=== PATIENT | male | born 1960 | race Caucasian/White ===

== ENCOUNTER 2019-12-07 12:27 | Emergency (ER) | payer OTHER ==
[2019-12-07 12:32] VITALS: BP 130/82; PULSE 87; TEMP 97.6; BMI 33.7
[2019-12-07] MEDS ORDERED: KETOROLAC TROMETHAMINE 60 MG/2 ML VIAL IM ONE (13:25)
--- NOTE | 2019-12-07 13:29 | PDOC ---
History of Present Illness - General Chief Complaint: Pain Stated Complaint: NECK PAIN/ DIOMEDES SHOULDER PAIN Time Seen by Provider: 12/07/19 12:44 History Source: Patient Exam Limitations: No Limitations - History of Present Illness Is this a multiple visit Asthma Patient?: Yes Associated Symptoms: denies: chest pain, fever/chills, loss of appetite, nausea/ vomiting, shortness of breath, weakness Past History - Travel Traveled outside of the country in the last 30 days: No Close contact w/someone who was outside of country & ill: No - Past Medical History Allergies/Adverse Reactions: Allergies Allergy/AdvReac Type Severity Reaction Status Date / Time No Known Allergies Allergy Verified 12/07/19 12:32 Home Medications: Ambulatory Orders Alprazolam [Alprazolam ER] 1 mg PO TID 12/07/19 Cyclobenzaprine HCl [Flexeril -] 10 mg PO TID #21 tablet 12/07/19 Cyclobenzaprine HCl [Flexeril -] 10 mg PO TID #21 tablet 12/07/19 Diclofenac Sodium 75 mg PO BID PRN 12/07/19 COPD: No Psychiatric Problems: Yes (ANXIETY) - Surgical History Cholecystectomy: Yes - Immunization History Immunization Up to Date: Yes - Psycho Social/Smoking Cessation Hx Smoking History: Never smoked Hx Alcohol Use: No Drug/Substance Use Hx: No Review of Systems - Review of Systems Constitutional: No: Chills, Fever Respiratory: No: Shortness of Breath Cardiac (ROS): No: Chest Pain, Lightheadedness, Palpitations Musculoskeletal: Yes: Back Pain, Neck Pain, Joint Stiffness. No: Joint Pain, Joint Swelling, Muscle Pain, Muscle Weakness Neurological: Yes: Tingling. No: Numbness, Paresthesia, Weakness, Unsteady Gait , Dizziness *Physical Exam - Vital Signs Last Vital Signs Temp Pulse Resp BP Pulse Ox 97.6 F 87 18 130/82 98 12/07/19 12:27 12/07/19 12:27 12/07/19 12:27 12/07/19 12:27 12/07/19 12:27 - Physical Exam General Appearance: Yes: Nourished Respiratory/Chest: positive: Lungs Clear, Normal Breath Sounds Cardiovascular: positive: Regular Rhythm, Regular Rate, S1, S2 Musculoskeletal: positive: Muscle Spasm (b/l trapezius region. FROM with pain in b/l shoulder) Integumentary: positive: Normal Color Neurologic: positive: low pressure firer II-XII NML intact, Fully Oriented, Alert, Normal Mood/ Affect, Normal Response, Motor Strength 03/30 Medical Decision Making - Medical Decision Making 12/07/19 13:27 59 years old male with history of anxiety, patient was seen in the emergency room 2 weeks ago with bilateral shoulder pain after initiating exercise. Patient was given meloxicam and Naprosyn for pain control he was also advised to follow-up orthopedic if pain persists. Patient reports she saw Dr. Ingrid Jasmine last week who is an orthopedic doctor at [facility] and he was recommended to follow-up pain management and physical therapy. He is here with worsening bilateral pain pain in the posterior neck that is keeping him up at night. He denies any trauma to the shoulders. He denies any weakness. He has 1 more muscle relaxant pill left. Patient is also taking diclofenac which was given by the orthopedic. He is also undergoing a lot of stress as he recently lost his 20-year-old daughter. With muscle spasm along upper trapezius region Will give a prescription for muscle relaxant patient patient was advised to follow-up pain management and physical therapy 12/07/19 15:23 Discharge - Discharge Information Problems reviewed: Yes Clinical Impression/Diagnosis: Muscle spasm Condition: Stable Disposition: HOME - Admission No - Additional Discharge Information Prescriptions: Cyclobenzaprine HCl [Flexeril -] 10 mg PO TID #21 tablet Cyclobenzaprine HCl [Flexeril -] 10 mg PO TID #21 tablet Prescription Drug Monitoring Program (I-STOP) results: I-STOP not reviewed - Follow up/Referral Referrals: Pepe Rico MD [Primary Care Provider] - - Patient Discharge Instructions Patient Printed Discharge Instructions: DI for Muscle Spasm Additional Instructions: Please follow-up with pain management and physical therapy as previously advised. Take muscle relaxant for pain as prescribed as directed do not drink or operate any heavy machinery after ingestion of muscle relaxant. Continue taking warm showers for your tense muscles. Follow-up with primary care doctor. Return to the emergency room if worsening symptoms occurs - Post Discharge Activity
[2019-12-07] MEDS ORDERED: KETOROLAC TROMETHAMINE 60 MG/2 ML VIAL ONE (13:33)
== END 2019-12-07 14:03 | disposition home or self-care (01) ==
LOC: JERFT 12:27
PROC: 3E0233Z Introduction of Anti-inflammatory into Muscle, Percutaneous Approach (ICD-10-PCS; principal; 2019-12-07)
DX: M62.838 Other muscle spasm (principal); F41.9 Anxiety disorder, unspecified
CPT/HCPCS: 99281-25

== ENCOUNTER 2021-03-26 20:07 | Emergency (ER) | payer OTHER ==
[2021-03-26 20:17] VITALS: TEMP 98.3; BMI 42.0
[2021-03-26] MEDS ORDERED: diazePAM 5 MG TABLET PO ONE (20:52)
[2021-03-26] MEDS ORDERED: diazePAM 5 MG TABLET ONE (20:53)
[2021-03-27 02:05] VITALS: BP 102/51; PULSE 76
== END 2021-03-27 04:15 | disposition home or self-care (01) ==
LOC: JER 20:07
DX: T50.901A Poisoning by unspecified drugs, medicaments and biological substances, accidental (unintentional), initial encounter (principal)
CPT/HCPCS: 93005; 93010; 99284-25